=== PATIENT | female | born 1955 | race Caucasian/White ===

== ENCOUNTER 2022-12-21 13:55 | Emergency (ER) | payer OTHER, SELFPAY ==
--- NOTE | ~2022-12-21 | CT_ITS ---
Clinical Indication: Dissection, back pain CT Scan of the Chest, Abdomen, and Pelvis with Contrast: Technique: Contiguous sections were acquired throughout the chest, abdomen, and pelvis after intraven ous administration of 100 cc of Omnipaque 350. Dose reduction technique was used on this scan by uti denging automated exposure control and iterative reconstruction technique. The dose-length product (DL P) was 342.56 mGy-cm. Findings: There is no evidence of any significant mediastinal, hilar or axillary lymphadenopathy. The mediastin al soft tissues appear normal. No aortic aneurysm or dissection. No pulmonary embolus identified. There is no evidence of pleural or pericardial effusion. The lungs are clear. No pulmonary nodules or infiltrates are noted. The liver, spleen, pancreas, adrenals and kidneys are within normal limits. Multiple small calcified gallstones are present. No evidence of aortic aneurysm. No lymphadenopathy. No bowel obstruction or bowel wall thickening. There is no evidence to suggest acute appendicitis. Urinary bladder is unremarkable. Patient appears to be post hysterectomy. No pelvic mass seen. Small amount of pelvic ascites present. Mild compression deformity of superior endplate of L3 is present. Impression: No aortic aneurysm or dissection. Mild compression deformity at the superior endplate region of L3. Small amount of pelvic free fluid, nonspecific. Cholelithiasis. Reviewed, dictated and finalized at location . Impression: No aortic aneurysm or dissection. Mild compression deformity at the superior endplate region of L3. Small amount of pelvic free fluid, nonspecific. Cholelithiasis.
[2022-12-21 13:52] VITALS: BP 140/74; PULSE 83; RESP 20; O2SAT 100
[2022-12-21 14:00] VITALS: BP 134/78; PULSE 87; RESP 19; TEMP 36.6; O2SAT 100
--- NOTE | 2022-12-21 14:20 | ECG_ITS ---
Measurements Intervals Orient Rate: 70 P: 85 SC: 211 QRS: 64 QRSD: 86 T: 54 QT: 394 QTc: 427 Interpretive Statements SINUS RHYTHM WITH SINUS ARRHYTHMIA WITH FIRST DEGREE AV BLOCK ABNORMAL ECG NO PREVIOUS ECG AVAILABLE FOR COMPARISON Electronically Signed On 12-22-2022 10:17:26 CDT by Sadi Thurman M.D.
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
[2022-12-21 14:43] LABS: Basophils Absolute Auto 0.1 K/mm3 (0.0-0.1); Eosinophils Absolute Auto 0.1 K/mm3 (0-0.3); Hematocrit 44.1 % (37.0-47.0); Immature Granulocyte Absolute 0.27 K/mm3 (0.00-0.031); Immature Granulocyte Percent A 5.6 % (0-0.5); Lymphocytes Absolute Auto 1.89 K/mm3 (0.9-3.2); Lymphocytes Percent Auto 39.3 % (18.3-44.2); Mean Corpuscular HGB Conc 31.7 g/dl (32-36); Mean Corpuscular Hemoglobin 30.2 pg (26-34); Mean Corpuscular Volume 95.2 fl (80-100); Mean Platelet Volume 11.1 fl (7.4-10.4); Monocytes Absolute Auto 0.3 K/mm3 (0.1-0.6); Monocytes Percent Auto 5.8 % (2.6-8.5); Neutrophils Absolute Auto 2.3 K/mm3 (1.3-6.7); Neutrophils Percent Auto 47.3 % (45.5-73.1); Platelet Count Result 146 k/mm3 (150-375); Red Blood Count 4.63 M/mm3 (4.2-5.4); White Blood Count 4.8 K/mm3 (4.5-10.0)
[2022-12-21 14:53] LABS: INR 1.1; Prothrombin Time 14.7 Seconds (11.1-14.7)
[2022-12-21 14:54] LABS: Partial Thromboplastin Time 34.8 SECONDS (22.3-36.8)
[2022-12-21 14:55] LABS: Alanine Aminotransferase 54 U/L (6-35); Albumin Level 4.2 g/dL (3.5-5.1); Alkaline Phosphatase 140 U/L (38-126); Anion Gap 7 mmol/L (8-16); Aspartate Amino Transferase 111 U/L (14-36); Bilirubin,Total 0.6 mg/dL (0.2-1.3); Blood Urea Nitrogen 22 mg/dL (7-17); Calcium 9.4 mg/dL (8.4-10.2); Carbon Dioxide 29 mmol/L (22-30); Chloride 108 mmol/L (98-107); Estimated CRCL calculation 48 ml/min; Estimated Glomerular Filt Rate > 60; Glucose 92 mg/dL (65-110); Potassium 3.5 mmol/L (3.4-5.0); Sodium 144 mmol/L (137-145)
[2022-12-21 15:04] LABS: Platelet Estimate Adequate (Adequate)
[2022-12-21 15:05] LABS: Atypical Lymphocytes Present; Ovalocytes 1+ (NORMAL); Schistocytes None Seen (NORMAL)
[2022-12-21 15:24] VITALS: BP 127/69; PULSE 81; RESP 15; O2SAT 100
[2022-12-21 16:19] VITALS: BP 113/67; PULSE 75; RESP 15; O2SAT 100
[2022-12-21 16:50] VITALS: BP 113/66; PULSE 74; RESP 14; O2SAT 100
[2022-12-21 17:30] VITALS: BP 122/72; PULSE 81; RESP 20; O2SAT 98
== END 2022-12-21 17:30 | disposition home or self-care (01) ==
PROVIDERS: Emergency Provider Emergency Medicine
DX: R07.89 Other chest pain (principal); S32.030A Wedge compression fracture of third lumbar vertebra, initial encounter for closed fracture; V47.6XXA Car passenger injured in collision with fixed or stationary object in traffic accident, initial encounter
CPT/HCPCS: 36415; 71275; 74174; 80053; 85025; 85610; 85730; 93005; 96365; 99284; J0131; Q9967